=== PATIENT | female | born 1935 | race Caucasian/White ===

== ENCOUNTER 2019-06-02 20:54 | Observation (INO) ==
[2019-06-02] MEDS ORDERED: GLUCAGON,HUMAN RECOMBINANT 1 MG VIAL IV ONE (21:16)
--- NOTE | 2019-06-02 21:16 | Emergency Department Note ---
Skin/Abscess/FB HPI - General Chief complaint: Skin/Abscess/Foreign Body Stated complaint: something "stuck" in throat Time Seen by Provider: 06/02/19 21:06 Source: patient Mode of arrival: ambulatory Limitations: no limitations - History of Present Illness HPI Narrative: This pleasant 83-year-old female comes emergency room with feeling like something is stuck in her throat. At dinner she ate a piece of steak and it seemed like it caught low in her chest or abdomen. She has been able to swallow other things but it seems like they have come up. She is drooling a fair amount. She feels like she is vomited up some liquidy phlegmy material but not food. Has difficulty feeling like she can actually swallow. This is the third or more episodes but previous episode spontaneously resolved quicker and more easily than this has at this point in time.She is being seen just before 9 PM. REVIEW OF SYSTEMS: Denies fever, chills, sweats. Is coughing and doing some wheezing No no back pain No lightheadedness or dizziness. - Related Data Home Medications Medication Instructions Recorded Confirmed Atorvastatin [Lipitor] 20 mg PO HS 05/26/16 06/03/19 Calcium Carbonate/Vitamin D3 1 tablet PO BID 05/26/16 06/03/19 [Calcium 600 + Vit D Tablet] Clopidogrel [Plavix] 75 mg PO DAILY 05/26/16 06/03/19 Multivitamin/Iron/Folic Acid 1 each PO DAILY 05/26/16 06/03/19 [Centrum Complete Multivit Tab] Ramipril [Altace] 5 mg PO DAILY 05/26/16 06/03/19 amLODIPine [Norvasc] 5 mg PO DAILY 05/26/16 06/03/19 cloNIDine HCL [Catapres] 0.1 mg PO DAILY 05/26/16 06/03/19 Previous Rx's Medication Instructions Recorded Acetaminophen [Tylenol] 650 mg PO Q4-6HP PRN #90 tablet 05/30/16 HYDROcodone/APAP 5/325MG [[place] 1 tab PO Q4HP PRN #30 tablet 05/30/16 5-325Mg] Allergies Allergy/AdvReac Type Severity Reaction Status Date / Time No Known Drug Allergies Allergy Verified 06/02/19 20:58 Past Medical History - Past Medical History [facility] Narrative: Medical History (Last Updated 06/02/19 @ 21:07 by Javon Fuller DO) Hyperlipidemia (Chronic) Hypertension, essential (Chronic) Sepsis (Acute) Hypokalemia (Acute) Fracture, humerus, anatomical neck (Acute) Past Surgical History (Last Updated 06/02/19 @ 23:56 by Javon Fuller DO) History of total left knee replacement (Acute) Family history: Denies diabetes. Medical history: Reports: CVA (vs TIA (?)). Denies: DM Surgical history ED: Reports: cholecystectomy, MANDO/BSO - Social History smoking status: Never smoker Physical Exam Limitations: no limitations General appearance: alert, in no apparent distress Head: atraumatic, normocephalic Eye: Present: EOMI ENT: Present: mucous membranes moist, other (Spitting some and occasional retching/vomiting with mucoid and saliva discharge without food particle.) Neck: Present: trachea midline. Absent: lymphadenopathy, thyromegaly Chest: Present: symmetric chest wall rise Respiratory: Present: normal lung sounds bilaterally. Absent: respiratory distress, wheezes, stridor, accessory muscle use, prolonged expiratory phase Cardiovascular: Present: regular rate, normal rhythm. Absent: systolic murmur, diastolic murmur Abdominal: Present: soft. Absent: distention, tenderness, guarding, rebound, rigidity, organomegaly, mass Extremities: Absent: pedal edema, pretibial edema, calf tenderness Back: Absent: CVA tenderness (R), CVA tenderness (L), spinous process tenderness Neurological: Present: alert, oriented X3 Psychiatric: Present: normal affect, normal mood Skin: Present: warm, dry Course Vital Signs Temperature 98.0 F 06/02/19 20:55 Respiratory Rate 19 06/02/19 20:55 Blood Pressure 196/104 06/02/19 20:55 Pulse Oximetry (%) 99 06/02/19 20:55 Temperature 97.8 F 06/03/19 07:43 Pulse Rate 67 06/03/19 07:43 Respiratory Rate 18 06/03/19 07:43 Blood Pressure 157/65 06/03/19 07:43 Pulse Oximetry (%) 97 06/03/19 07:43 Skin/Abscess/Foreign Body - MDM Narrative Medical decision making narrative: Appears to be a food bolus caught in the lower esophagus. Has a history of si milar episodes that self resolved. Has not had upper endoscopy. We will do one milligram IV glucagon and if not improving referral to GI. 11:00 PM approximately - patient experiencing some nausea and ondansetron was ordered. 11:58 PM - patient has not improved enough to feel like she can swallow at all or significantly or well. I will discuss with general surgeon and/or GI. 12:08 AM (00:08 hours) - I spoke with Dr. Alcocer who is willing to accept this patient. Instructions from him include 3 doses of glucagon 1 mg IV at 2-hour intervals. Also metoclopramide 5 mg IV every 6 hours. IV fluids. Head of bed to be elevated at 45 degrees at all times. Disposition Pt seen by C[employer]MENT [employer]PERVISOR/PA only: No Clinical Impression: Distal esophageal obstruction due to foreign body Disposition: Xfer As Outpt/Obs ([facility]) Condition: Good
[2019-06-03] MEDS ORDERED: 0.9 % SODIUM CHLORIDE 1,000 ML IV SCH (00:15)
[2019-06-03] MEDS ORDERED: GLUCAGON,HUMAN RECOMBINANT 1 MG VIAL IV ONE ×3 (01:00→05:00)
[2019-06-03] MEDS ORDERED: GLUCAGON,HUMAN RECOMBINANT 1 MG VIAL IV PRN (01:00)
[2019-06-03] MEDS ORDERED: DIATRIZOATE MEGLU/DIATRIZO SOD 30 ML BOTTLE PO ONE (01:36)
[2019-06-03] MEDS: METOCLOPRAMIDE 10 MG/2 ML VIAL IV SCH ×2 (01:54→06:40)
--- NOTE | 2019-06-03 09:39 | XRay Report ---
CLINICAL INFORMATION: Chest pain - evaluate for foreign body. TECHNIQUE: water-soluble contrast was ingested under fluoroscopic observation while spot films were obtained of the esophagus during deglutition in both the upright and prone positions. FINDINGS: Tongue elevation and palate depression are normal resulting in propulsion of the barium bolus into the pharynx. The nasopharyngeus closes normally. Pharyngeal stripping, cricopharyngeal opening, primary peristaltic wave and lower esophageal sphincter all are normal. The epiglottis and vocal cords close normally - no evidence of descending aspiration. Small sliding hiatal hernia with a thin Schatzki's ring noted which did not impede contrast passage. The esophagus is, otherwise, normal in contour and caliber without evidence of esophagitis or focal lesion. No foreign body identified. IMPRESSION: No evidence of esophageal perforation or foreign body Small sliding hiatal hernia with thin Schatzki's ring Interpreted and Authenticated by: Kenneth Renner 06/03/19
--- NOTE | 2019-06-03 11:40 | General Surg History&Physical ---
History of Present Illness Patient information: Note initiated : 06/03/19 at 11:39 am Service Date, if different from initiated Date: [] Patient: Cesilia Aguilar a 83 y/o F admitted on for something "stuck" in throat. Chief Complaint: [] HPI: Ms. Aguilar is a 83 year old F Medications and Allergies Home Medications Medication Instructions Recorded Confirmed Type Atorvastatin [Lipitor] 20 mg PO HS 05/26/16 06/03/19 History Calcium Carbonate/Vitamin D3 1 tablet PO BID 05/26/16 06/03/19 History [Calcium 600 + Vit D Tablet] Clopidogrel [Plavix] 75 mg PO DAILY 05/26/16 06/03/19 History Multivitamin/Iron/Folic Acid 1 each PO DAILY 05/26/16 06/03/19 History [Centrum Complete Multivit Tab] Ramipril [Altace] 5 mg PO DAILY 05/26/16 06/03/19 History amLODIPine [Norvasc] 5 mg PO DAILY 05/26/16 06/03/19 History cloNIDine HCL [Catapres] 0.1 mg PO DAILY 05/26/16 06/03/19 History Acetaminophen [Tylenol] 650 mg PO Q4-6HP PRN #90 tablet 05/30/16 06/03/19 Rx HYDROcodone/APAP 5/325MG [[place] 1 tab PO Q4HP PRN #30 tablet 05/30/16 06/03/19 R x 5-325Mg] Allergies Allergy/AdvReac Type Severity Reaction Status Date / Time No Known Drug Allergies Allergy Verified 06/02/19 20:58 Exam Temp Pulse Resp BP Pulse Ox 97.8 F 67 18 157/65 97 06/03/19 07:43 06/03/19 07:43 06/03/19 07:43 06/03/19 07:43 06/03/19 07:43 Assessment and Plan (1) Distal esophageal obstruction due to foreign body Status: Acute (2) Hypertension, essential Status: Chronic
--- NOTE | 2019-06-03 11:41 | General Surgery Progress Note ---
Subjective Patient reports: feels better, tolerating liquids well, afebrile Narrative: Note initiated : 06/03/19 at 11:40 am Service Date, if different from initiated Date: [] Patient: Cesilia Aguilar 83 y/o F admitted on for something "stuck" in throat. Chief Complaint: [patient is doing well. She is able to swallow liquids. A barium swallow was done and showed free flow of contrast through the esophagus and into the stomach. She does have a Schatzker's ring which is not obstructive. Patient is stable and can be discharged home.] Objective Temp Pulse Resp BP Pulse Ox 97.8 F 67 18 157/65 97 06/03/19 07:43 06/03/19 07:43 06/03/19 07:43 06/03/19 07:43 06/03/19 07:43 - Additional Data Intake & Output - Last 24 hours: Intake & Output 06/01/19 06/02/19 06/03/19 06/04/19 05:59 05:59 05:59 05:59 Weight 149 lb 3.2 oz Assessment and Plan (1) Distal esophageal obstruction due to foreign body Status: Resolved Assessment and plan: Patient is advised that she needs to have follow-up EGD and balloon dilation. She can follow-up in the office as needed. Current Visit: Yes (2) Hypertension, essential Status: Chronic Current Visit: No - Time Spent With Patient Total time spent is greater than 50% in coordination of care (as documented) at patient's floor/unit and/or counseling patient:
== END 2019-06-03 12:03 | disposition home or self-care (01) ==
LOC: ED 20:54 → MEDSUROUT 06-03 01:35 → ICU 06-03 01:35 → MEDSUROUT 06-03 12:03 → ICU 06-03 13:36
PROVIDERS: ADMIT Family Medicine Adult Medicine; ATTEND Family Medicine Adult Medicine